=== PATIENT | female | born 1980 | race Caucasian/White ===

== ENCOUNTER 2025-02-05 13:49 | Outpatient (AMB) | payer OTHER, SELFPAY ==
--- NOTE | 2025-02-05 14:00 | A.OFFPC_ITS ---
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 Intake Note: New patient visit Hook Up Required: No Allergies No Known Allergies Allergy (Verified 02/05/25 14:00) Medication List - Last Reconciled 02/05/25 by ANNA Enamorado norethindrone-e.estradiol-iron 1.5 mg-30 mcg (21)/75 mg (7) ( FE 1.5/30 (28)) 1 tab PO DAILY Tobacco use date assessed: 02/05/25 Dental Screening Dental Screen Date: 02/05/25 Did you have a dental visit in the last 12 months?: Yes Did you have a dental problem in the last 6 months where you did not have access to dental care?: No Was dental information given to patient?: Patient has dentist HPI HPI Comments History of Present Illness Details This is a 44-year-old female with no significant past medical history presenting to [facility]. She requests a physical exam. She was previously followed by Dr. Yaquelin Brasher. She has no health concerns today. She takes a multivitamin daily. She is followed by [facility] in [place]. Patient says she is up-to-date with mammogram. Gynecology orders this. She denies family history of breast cancer. Her insurance sent her a Cologuard kit. She denies family history of colon polyps or colon cancer. She is unsure who will get the results. Patient reports she is up-to-date with immunizations and receives her flu shot through her job. She has a biomedical scientist. She says tetanus is up-to-date. Patient reports her mother has a history of a thyroid disorder. She thinks that she had her thyroid or part of it removed when she was much younger, and she is on thyroid medication now. She is a nonsmoker. She drinks alcohol once per week. No drug abuse. ROS: Constitutional: No unexplained weight loss, fever, chills, fatigue or night sweats. Eyes: No vision changes, blurry vision, double vision, eye pain, eye redness, eye discharge. ENT: No hearing loss, sneezing, congestion, runny nose or sore throat. Respiratory: No shortness of breath, cough or sputum production. Cardiovascular: No chest pain, chest pressure or chest discomfort. No palpitations or pedal edema. Gastrointestinal: No anorexia, nausea, vomiting or diarrhea. No abdominal pain or blood in stool. Genitourinary: No dysuria, hematuria, urinary frequency. Neurologic: No headache, dizziness, syncope, unilateral weakness, ataxia, numbness or tingling in the extremities. Musculoskeletal: No muscle pain, back pain, joint pain or swelling. Hematologic/Lymphatics: No bleeding or bruising. No painful lymph nodes. Skin: No rash or itching. No new or changing moles. Endocrine: No cold or heat intolerance. No polyuria or polydipsia. Psychiatric: No depression or anxiety. No SI/HI. Physical exam: Constitutional: Alert, in no distress. Head: Normocephalic. Eyes: Pupils are equal, round and reactive to light. Extraocular muscles intact. Ear, Nose and Throat: Canals clear. TMs normal. Normal nasal mucosa. No nasal discharge. No oral lesions. Neck: Supple, Full range of motion. No lymphadenopathy. No palpable thyroid masses. Respiratory: Clear to auscultation. Cardiovascular: S1 S2 regular. No murmurs. Gastrointestinal: Abdomen soft, non-tender, non-distended. Normal bowel sounds. No palpable masses. Neurologic: No focal neurological deficits. Symmetric patellar reflexes. Moves all extremities spontaneously. Sensation intact bilaterally. Skin: No rashes Musculoskeletal: No gross deformities. Normal range of motion. Extremities: Warm and well perfused. No clubbing, cyanosis or edema. Intact peripheral pulses bilaterally Psychiatric: Normal mood and affect [facility] Medical History (Updated 02/05/25 @ 14:21 by ANNA Enamorado) Family history of thyroid disease Routine physical examination Screening for cardiovascular condition Surgical History (Updated 02/05/25 @ 14:09 by Palak Marshall CMA) No pertinent past surgical history Family History (Updated 02/05/25 @ 14:11 by Palak Marshall CMA) Mother Thyroid disorder Paternal Grandfather Lymphoma Social History (Updated 02/05/25 @ 14:11 by Palak Marshall CMA) Housing: House Alcohol intake: current Patient Tobacco Use Status: Never used Tobacco e-Cigarette/Vaping Use: Never Used Second Hand Smoke Exposure: Yes service: No Current occupational status: employed Current occupation: Research biomedical scientist Current occupational exposures/hazards: Yes (works in the lab, chemicals.) Cognitive needs: No Hearing needs: No Vision needs: Yes (distance glasses) Questionnaire PHQ-9 Over the last 2 weeks, how often have you been bothered by any of the following problems? 1. Little interest or pleasure in doing things: not at all 2. Feeling down, depressed, or hopeless: not at all 3. Trouble falling or staying asleep, or sleeping too much: not at all 4. Feeling tired or having little energy: not at all 5. Poor appetite or overeating: not at all 6. Feeling bad about yourself - or that you are a failure or have let yourself or your family down: not at all 7. Trouble concentrating on things, such as reading the newspaper or watching television: not at all 8. Moving or speaking so slowly that other people could have noticed. Or the opposite - being so fidgety or restless that you have been moving around a lot more than usual: not at all 9. Thoughts that you would be better off or of hurting yourself in some way: not at all Total score: 0 Depression Screening Interpretation: Negative Depression Screening Done: Yes 60508 - PHQ-9 Billing: Yes Source: Developed by Drs. Randy Downing, Bertha Eastman, Rosales Bowden and colleagues, with an educational elisabeth from [employer]. Thrive Questionnaire Date Thrive assessed: 01/29/25 I am a: Patient What is your living situation today?: I have a steady place to live Within the past 12 months, did the food you bought not last and you didn't have the money to get more?: Never true Within the past 12 months, did you worry whether your food would run out before you got money to buy more?: Never true Do you have trouble paying for medicines?: No Do you have trouble getting transportation to medical appointments?: No Do you have trouble paying your heating and electricity bill?: No Do you have trouble taking care of your child, family member or friend?: No Do you have trouble with day-to-day activities such as bathing, preparing meals, shopping, managing finances, etc.?: No Are you currently unemployed and looking for a job?: No Are you interested in more education?: No Please select the resources that you would like help with: None Currently or been in a relationship where the following occur: No concerns reported THRIVE Score: 0 AUDIT C Alcohol Use Questionnaire (AUDIT-C) 1. How often do you have a drink containing alcohol?: 2-4 times a month 2. How many drinks containing alcohol do you have on a typical day when you are drinking?: 1 or 2 3. How often do you have six or more drinks on one occasion?: Never Total Score: 2 BASHIR-7 AMB Questionnaire BASHIR-7 Date BASHIR - 7 assessed: 02/05/25 Feeling nervous, anxious, or on edge: 0 = Not at all Not being able to stop or control worryin = Not at all Worrying too much about different things: 0 = Not at all Trouble relaxin = Not at all Being so restless that it is hard to sit still: 0 = Not at all Becoming easily annoyed or irritable: 0 = Not at all Feeling afraid as if something awful might happen: 0 = Not at all Total BASHIR-7 score (0-4 normal; 5-9 mild; 10-14 moderate; 15-21 severe): 0 Source: Developed by Drs. Randy Downing, Bertha Eastman, Rosales Bowden and colleagues, with an educational elisabeth from [employer]. BASHIR-7 Assessment Billing BASHIR-7 Assessment Tool: BASHIR-7 Assessment 87205 Physical exam (Primary Care) Vital Signs: Last Vital Signs Temp 98.1 F 02/05/25 14:04 Pulse 94 02/05/25 14:04 Resp 14 02/05/25 14:04 BP 114/76 02/05/25 14:04 Oxygen Delivery Method Room Air 02/05/25 14:04 BMI result Body Mass Index 22.8 Tobacco/Smoking Status: Tobacco use Status Tobacco use date assessed 02/05/25 02/05/25 14:11 Patient Tobacco Use Status Never used Tobacco 02/05/25 14:11 e-Cigarette/Vaping Use Never Used 02/05/25 14:11 PHQ-9: PHQ-9 Score PHQ-9: Total score 0 02/05/25 14:11 Depression Screening Interpretation: Negative Thrive Assessment: Date of Thrive Assessment Date Thrive assessed 01/29/25 02/05/25 14:11 Currently or been in a relationship where the following occur: No concerns reported Coding Level of Care Code New Pt Prev Care 40-64y(66409) Diagnoses Screening for cardiovascular condition Z13.6 Routine physical examination Z00.00 Family history of thyroid disease Z83.49 Additional Codes BASHIR-7 Assessment Billing - BASHIR-7 Assessment Tool: BASHIR-7 Assessment 70895 ([id number]) PHQ-9 - 17832 - PHQ-9 Billing: Yes ([id number]) Assessment & Plan Assessment & Plan (1) Screening for cardiovascular condition: Code(s): Z13.6 - Encounter for screening for cardiovascular disorders Category: Medical (2) Routine physical examination: Code(s): Z00.00 - Encounter for general adult medical examination without abnormal findings Category: Medical (3) Family history of thyroid disease: Code(s): Z83.49 - Family history of other endocrine, nutritional and metabolic diseases Category: Medical Plan Patient is seen today for a routine physical. As part of this visit we reviewed the following issues, which are considered and essential part of preventative health in this age group: - Breast Cancer screening - Annual Diesel Service Journeyman exam - Screening for colon cancer. Declined colonoscopy. I will reorder the Cologuard to ensure results come to this office. - Blood pressure screening - Cholesterol screening - Osteoporosis prevention including calcium/vitamin D intake, weight bearing exercise & smoking cessation - Nutritional and exercise counseling - Counseling of injury prevention including fire prevention, smoke alarms and seat belt usage - Screening for depression - Education about skin cancer - Recommendations about immunizations - Recommendation of an eye exam - Screening for substance abuse Schedule physical exam in 1 year. Orders: Orders TSH reflex Free T4 Today Z00.00 - Encounter for general adult medical examination without abnormal findings, Z13.6 - Encounter for screening for cardiovascular disorders, Z83.49 - Family history of other endocrine, nutritional and metabolic diseases Lipid Panel Today Z00.00 - Encounter for general adult medical examination without abnormal findings, Z13.6 - Encounter for screening for cardiovascular disorders, Z83.49 - Family history of other endocrine, nutritional and metabolic diseases Complete Blood Count no Diff Today Z00.00 - Encounter for general adult medical examination without abnormal findings, Z13.6 - Encounter for screening for cardiovascular disorders, Z83.49 - Family history of other endocrine, nutritional and metabolic diseases Comprehensive Met. Panel Today Z00.00 - Encounter for general adult medical examination without abnormal findings, Z13.6 - Encounter for screening for cardiovascular disorders, Z83.49 - Family history of other endocrine, nutritional and metabolic diseases Referrals Cologuard Test Z12.11 - Encounter for screening for malignant neoplasm of colon
[2025-02-05 14:04] VITALS: BP 114/76; PULSE 94; RESP 14; TEMP 36.7; BMI 22.8
== END 2025-02-05 14:36 | disposition home or self-care (01) ==
LOC: HO.HMCFM 13:50
PROVIDERS: Visit Provider Physician Assistant Medical
DX: Z13.6 Encounter for screening for cardiovascular disorders (principal); Z00.00 Encounter for general adult medical examination without abnormal findings; Z83.49 Family history of other endocrine, nutritional and metabolic diseases

== ENCOUNTER → 2025-02-05 13:49 | Outpatient (BNVA) | payer OTHER, SELFPAY | PROVIDERS: Visit Provider Physician Assistant Medical | DX: Z00.00 Encounter for general adult medical examination without abnormal findings (principal); Z83.49 Family history of other endocrine, nutritional and metabolic diseases; Z13.31 Encounter for screening for depression; Z13.39 Encounter for screening examination for other mental health and behavioral disorders | CPT/HCPCS: 96127 ==

== ENCOUNTER 2025-02-09 08:04 | Outpatient (REF) | payer OTHER, SELFPAY ==
[2025-02-09 11:33] LABS: Hematocrit 38.8 % (37.0-47.0); Hemoglobin 13.1 g/dl (12.0-16.0); Mean Corpuscular HGB Conc 33.8 g/dl (31.0-35.0); Mean Corpuscular Hemoglobin 31.2 pg (27.0-33.0); Mean Corpuscular Volume 92.4 fL (80.0-98.0); NRBC Abs Auto 0.000 X10*3/uL (0.0-0.012); NRBC Pct Auto 0.0 /100WBC (0.0-0.2); Platelet Count 224 X10*3/uL (160-400); Red Blood Count 4.20 X10*6/uL (4.20-5.50); White Blood Count 5.0 X10*3/uL (4.8-10.8)
[2025-02-09 12:29] LABS: Alanine Aminotransferase 27 U/L (0-31); Albumin Level 4.3 g/dL (3.5-5.0); Alkaline Phosphatase 44 U/L (39-117); Anion Gap 12 (12-20); Aspartate Amino Transferase 31 U/L (5-31); Blood Urea Nitrogen 8 mg/dL (9-16); Calcium 9.0 mg/dL (8.4-10.2); Carbon Dioxide 25 mmol/L (22-29); Chloride 106 mmol/L (96-108); Cholesterol 197 mg/dL (<200); Estimated Glomerular Filt Rate > 60; HDL Cholesterol 64 mg/dL (>40); Potassium 3.9 mmol/L (3.3-5.1); Sodium 139 mmol/L (135-145); Total Protein 7.1 g/dL (6.5-8.0); Triglycerides 77 mg/dL (<150)
== END 2025-02-09 08:05 | disposition home or self-care (01) ==
LOC: HO.WFDLDS 08:04
PROVIDERS: Visit Provider Physician Assistant Medical
DX: Z00.00 Encounter for general adult medical examination without abnormal findings (principal); Z13.6 Encounter for screening for cardiovascular disorders; Z83.49 Family history of other endocrine, nutritional and metabolic diseases; Z13.29 Encounter for screening for other suspected endocrine disorder
CPT/HCPCS: 36415; 80053; 80061; 84443; 85027